=== PATIENT | female | born 1970 | race Caucasian/White ===

== ENCOUNTER 2019-06-14 21:08 | Emergency (ER) | payer OTHER ==
[~2019-06-14] VITALS: Ht 157.5 cm; Wt 50.8 kg
[2019-06-14] MEDS ORDERED: ONDANSETRON 4 MG/2 ML VIAL IV ONE (21:30)
[2019-06-14] MEDS ORDERED: IV NORMAL SALINE 1000 ML BAG IV ONE (21:30)
--- NOTE | 2019-06-14 21:30 | NUR ---
Dr. Purcell at bedside for evaluation
[2019-06-14] MEDS ORDERED: ONDANSETRON 4 MG/2 ML VIAL ONE (21:32)
[2019-06-14 21:46] LABS: BASOPHILS % (AUTO) 0.3 % (0.0-2.0); EOSINOPHILS % (AUTO) 0.5 % (0.0-7.0); HEMATOCRIT 40.6 % (31.2-41.9); HEMOGLOBIN 13.7 g/dL (10.9-14.3); LYMPHOCYTES # (AUTO) 0.7 K/uL (20.0-40.0); LYMPHOCYTES % (AUTO) 7.6 % (20.5-51.5); MEAN CORPUSCULAR HEMOGLOBIN 31.2 uug (24.7-32.8); MEAN CORPUSCULAR HGB CONC 34 g/dL (32.3-35.6); MEAN CORPUSCULAR VOLUME 92.6 fL (75.5-95.3); MONOCYTES # (AUTO) 0.3 K/uL (2.0-10.0); NEUTROPHILS # (AUTO) 7.9 K/uL (1.8-8.9); NEUTROPHILS % (AUTO) 88.6 % (38.5-71.5); PLATELET COUNT (AUTO) 166 K/uL (179-408); RED BLOOD CELL COUNT(AUTO) 4.39 MIL/uL (3.63-4.92)
[2019-06-14 21:53] LABS: CREATININE 0.7 mg/dL (0.6-1.3); POTASSIUM 3.2 mmol/L (3.5-5.1)
[2019-06-14 21:58] LABS: BILIRUBIN,DIRECT 0.1 mg/dL (0.0-0.2); BILIRUBIN,TOTAL 0.4 mg/dL (0.2-1.0); TOTAL PROTEIN, SERUM 7.3 g/dL (6.4-8.2)
[2019-06-14] MEDS ORDERED: PROCHLORPERAZINE EDISYLATE 10 MG/2 ML VIAL ONE (22:05)
[2019-06-14] MEDS ORDERED: POTASSIUM CHLORIDE 20 MEQ TAB.PRT.SR ONE (22:06)
[2019-06-14] MEDS ORDERED: PROCHLORPERAZINE EDISYLATE 10 MG/2 ML VIAL IV ONE (22:15)
[2019-06-14] MEDS ORDERED: POTASSIUM CHLORIDE 20 MEQ TAB.PRT.SR PO ONE (22:15)
[2019-06-14] MEDS ORDERED: LORAZEPAM 2 MG/1 ML VIAL IV ONE (23:45)
[2019-06-14] MEDS ORDERED: LORAZEPAM 2 MG/1 ML VIAL ONE (23:47)
--- NOTE | 2019-06-15 00:38 | NUR ---
Patient discharged to home in stable conditon. Written and verbal after care instructions given. Patient verbalizes understanding of instructions. patient alert and oriente x4. Patient self ambulatory with steady gait. Exit care and personal belongings taken with patient at discharge.
[2019-06-15 00:39] VITALS: BP 110/78
== END 2019-06-15 00:40 | disposition home or self-care (01) ==
LOC: ER 21:12
DX: R11.2 Nausea with vomiting, unspecified (principal); E87.6 Hypokalemia; Z87.891 Personal history of nicotine dependence
CPT/HCPCS: 36415; 80048; 80076; 83690; 85025; 96361; 96374; 96375; 99283; J0780; J2060; J2405; A4663; J7030